=== PATIENT | male | born 1960 | race Caucasian/White ===

== ENCOUNTER → 2018-12-14 | Outpatient (REF) | payer BC | LOC: M LAB LCGH 13:42 | PROVIDERS: ATTEND Surgery | DX: D12.6 Benign neoplasm of colon, unspecified (principal) ==

== ENCOUNTER → 2024-07-28 | Outpatient (REF) | payer BC | LOC: M SFHCDERM 17:03 | PROVIDERS: ATTEND Dermatology | DX: R21 Rash and other nonspecific skin eruption (principal) ==